=== PATIENT | male | born 1980 | race Caucasian/White ===

== ENCOUNTER 2017-10-30 21:07 | Emergency (ER) | payer OTHER, MEDICAID ==
[~2017-10-30] VITALS: Ht 188 cm; Wt 124.7 kg
[~2017-10-30 21:07] MED LIST: ACETAMINOPHEN-1 EAC1 PO; ACYCLOVIR 400400 MG PO; AMOXIL 875 MG875 M1 PO; ASPIRIN81 M2 PO; ATIVAN1 MG PO; AUGMENTIN 875875 MG PO; AZITHROMYCIN PO; BACTRIM DS TAB1 EACH PO; BACTROBAN CREAM30 G1 TOP; BACTROBAN15 GM TP; CEFTIN500 MG PO; CELEXA10 MG PO; CLARITIN-D 121 EACH PO; CLEOCIN HCL150 MG PO; DILAUDID 2 MG TA2 MG PO; DOXYCYCLINE 10100 M1 PO; DOXYCYCLINE 10100 MG PO; ECONAZOLE 1% CR30 G1 TP; FISH OIL 1,001000 M2; FISH OIL 1,001000 M2 PO; FLOMAX0.4 MG; GABAPENTIN100 MG PO; HYDROCODON-ACE1 EAC7 PO; HYDROCODON-ACE1 EAC8; HYDROCODONE-AP1 EAC6 PO; IBUPROFEN 800800 M1 PO; KEFLEX500 MG PO; LANSOPRAZOLE30 MG; LANTUS100 UNIT/M SUBQ; LASIX 20 MG TAB20 MG PO; LIDOCAINE VISC100 M1 SWISH&SPIT; LIDODERM 5%1 PATC1 TRANSDERM; LOPRESSOR25; MEDROLDOSEPACK PO; METFORMIN HCL500 MG PO; METOPROLOL SUCC25 M1 PO; MOBIC7.5 M1 PO; NAPROSYN500 MG PO; NITROGLYCERIN0.4 MG SUBLING; NIZORAL120 ML TP; NOHOMEMEDICATIONS; NORCO 5-325 TA1 EACH PO; NORVASC 5 MG TAB5 MG PO; ONDANSETRON HCL4 M2 PO; PEPCID COMPLET1 EACH; PEPCID COMPLET1 EACH PO; PERCOCET 5-3251 EACH; PERCOCET 5-3251 EACH PO; PERCOCET 7.5-31 EACH PO; PHENERGAN 25 MG25 M1 PO; POTASSIUM20; PREDNISONE 20 M20 M1 PO; PREVACID 24HR15 MG PO; PREVACID15 MG; PRILOSEC 10MG C10 MG PO; PROTONIX40 M1; PROTONIX40 M1 PO; REGLAN 10 MG TA10 MG PO; ROBAXIN 750 MG750 M1 PO; ROBAXIN 750 MG750 MG PO; SIMVASTATIN5 MG PO; SUPPLEMENTS; TAMSULOSIN HCL0.4 M1 PO; TRAMADOL 50 MG50 MG PO; ULTRAM 50MG TAB50 MG PO; VENTOLIN HFA 1818 GM INH; VICODIN ES TAB1 EACH; XANAX XR1 MG PO; ZANTAC 150MG T150 MG; ZANTAC 150MG T150 MG PO; ZOFRAN4 MG PO
[2017-10-30 21:11] VITALS: BP 143/75
[2017-10-30] MEDS ORDERED: METFORMIN HCL500 MG PO (21:22)
[2017-10-30] MEDS ORDERED: NOVOLOG100 UNIT/M SUBQ (21:22)
[2017-10-30] MEDS ORDERED: RANITIDINE 150150 M1 PO (21:23)
[2017-10-30] MEDS ORDERED: ASPIR 8181 MG PO (21:24)
[2017-10-30] MEDS ORDERED: DOXYCYCLINE 10100 M1 PO (21:28)
== END 2017-10-30 21:36 | disposition home or self-care (01) ==
LOC: M.ERS 21:07
DX: L03.011 Cellulitis of right finger (principal); E11.9 Type 2 diabetes mellitus without complications; G47.30 Sleep apnea, unspecified; K21.9 Gastro-esophageal reflux disease without esophagitis; F17.210 Nicotine dependence, cigarettes, uncomplicated; Z87.442 Personal history of urinary calculi; Z86.14 Personal history of Methicillin resistant Staphylococcus aureus infection; Z95.5 Presence of coronary angioplasty implant and graft; Z88.0 Allergy status to penicillin; Z88.6 Allergy status to analgesic agent; Z79.4 Long term (current) use of insulin